=== PATIENT | male | born 1950 | race Caucasian/White ===

== ENCOUNTER 2017-10-18 21:03 | Emergency (ER) | payer BC ==
[2017-10-18] MEDS ORDERED: SODIUM CHLORIDE 0.9% 1,000 ML IV ONE (21:37)
[2017-10-18] MEDS ORDERED: ONDANSETRON 4 MG/2 ML VIAL IVP STA (21:37)
[2017-10-18 22:10] LABS: BASOPHILS # (AUTO) 0.1 10^3/uL (0.0-0.1); BASOPHILS % (AUTO) 0.5 %; EOSINOPHILS # (AUTO) 0.3 10^3/uL (0.0-0.7); EOSINOPHILS % (AUTO) 1.8 %; HGB - HEMOGLOBIN 14.8 g/dL (14.0-18.0); LYMPHOCYTES # (AUTO) 1.2 10^3/uL (1.5-3.5); LYMPHOCYTES % (AUTO) 8.4 %; MEAN CORPUSCULAR HEMOGLOBIN 29.3 pg (27.0-31.0); MEAN CORPUSCULAR HGB CONC 33.2 g/dL (32.0-36.0); MEAN CORPUSCULAR VOLUME 88.3 fL (80.0-94.0); MEAN PLATELET VOLUME 6.8 fL (7.4-11.4); MONOCYTES # (AUTO) 1.3 10^3/uL (0.0-1.0); NEUTROPHILS # (AUTO) 11.4 10^3/uL (1.5-6.6); NEUTROPHILS % (AUTO) 80.3 %; PLT - PLATELET COUNT 267 10^3/uL (130-450); RED BLOOD COUNT 5.05 10^6/uL (4.70-6.10); RED CELL DISTRIBUTION WIDTH 15.7 % (12.0-15.0); WHITE BLOOD COUNT 14.2 x10^3/uL (4.8-10.8)
[2017-10-18 22:21] LABS: ALBUMIN 4.2 g/dL (3.2-5.5); ALBUMIN/GLOBULIN RATIO 1.2 (1.0-2.2); BILIRUBIN,TOTAL 1.3 mg/dL (0.2-1.0); CALCIUM 9.1 mg/dL (8.5-10.3); CREATININE 1.1 mg/dL (0.6-1.2); TOTAL PROTEIN 7.6 g/dL (6.7-8.2)
--- NOTE | 2017-10-18 22:28 | ED Physician Documentation ---
PD HPI ABD PAIN - Stated complaint Stated Complaint: POSS ALLERGIC REACTION/STOMACH PX - Chief complaint Chief Complaint: Abd Pain - History obtained from History obtained from: Patient - History of Present Illness Timing - onset: How many days ago (4) Timing - details: Gradual onset, Still present Quality: Cramping, Aching Location: Epigastric, LUQ Worsened by: Eating Associated symptoms: Nausea, Diarrhea. No: Fever, Vomiting Similar symptoms before: Has not had sx before Recently seen: Not recently seen - Additional information Additional information: Patient is a 66 year old male with a history of diabetes, obesity and gerd who is presenting to the emergency department for abdominal pain. patient states that it has been going on for the last 4 days. Patient states that he thinks it started after taking a new medication for his diabetes. Patient does have a history of ibs mixed type and GERD. Review of Systems Constitutional: denies: Fever, Chills Eyes: denies: Decreased vision, Irritation Ears: denies: Ear pain, Drainage/discharge Nose: denies: Rhinorrhea / runny nose, Congestion Throat: denies: Dental pain / toothache, Sore throat Cardiac: denies: Chest pain / pressure, Palpitations GI: reports: Abdominal Pain, Nausea, Constipation, Diarrhea. denies: Vomiting : denies: Dysuria, Frequency Skin: denies: Rash, Lesions Musculoskeletal: denies: Back pain, Extremity pain Neurologic: denies: Generalized weakness, Focal weakness, Numbness Immunocompromised: denies: Immunocompromised PD PAST MEDICAL HISTORY - Past Medical History Past Medical History: Yes Cardiovascular: High cholesterol Respiratory: None Neuro: None Endocrine/Autoimmune: HyPOthyroidism, Other GI: GERD, Diverticulitis : None HEENT: None Psych: None Musculoskeletal: None Derm: None - Past Surgical History Past Surgical History: Yes General: Cholecystectomy, Other Ortho: Other - Present Medications Home Medications: Ambulatory Orders Medication Instructions Recorded Confirmed Ciprofloxacin HCl [Cipro] 500 mg PO BID #20 tablet 10/18/17 Metronidazole [Flagyl] 500 mg PO TID 10 Days tablet 10/18/17 Ondansetron Odt [Zofran] 4 mg TL Q6H PRN #20 tablet 10/18/17 - Allergies Allergies/Adverse Reactions: Allergies Allergy/AdvReac Type Severity Reaction Status Date / Time No Known Drug Allergies Allergy Verified 10/18/17 21:21 - Social History Does the pt smoke?: No Smoking Status: Never smoker Does the pt drink ETOH?: Yes Does the pt have substance abuse?: No - Immunizations Immunizations are current?: Yes - POLST Patient has POLST: No PD ED PE NORMAL - General General: Alert and oriented X 3, No acute distress - HEENT HEENT: Atraumatic - Neck Neck: Supple, no meningeal sign - Cardiac Cardiac: RRR, No murmur - Respiratory Respiratory: No respiratory distress - Derm Derm: Normal color, Warm and dry, No rash - Extremities Extremities: No deformity, No calf tenderness / cord - Neuro Neuro: Alert and oriented X 3 Eye Opening: Spontaneous Motor: Obeys Commands Verbal: Oriented GCS Score: 15 PD ED PE EXPANDED - HEENT HEENT: Dry mucous membranes - Abdomen Abdomen: Tender to palpation, Generalized/diffuse, Other (obese). No: Rebound, Guarding Results - Vitals Vitals: Vital Signs - 24 hr 10/18/17 10/18/17 10/18/17 21:18 21:24 22:00 Temperature 36.8 C Heart Rate 109 H 92 89 Respiratory 18 20 20 Rate Blood Pressure 143/98 H 148/95 H 137/86 H O2 Saturation 95 93 93 10/18/17 10/18/17 10/18/17 22:16 23:01 23:02 Temperature Heart Rate 90 87 89 Respiratory 20 19 19 Rate Blood Pressure 140/88 H O2 Saturation 93 94 93 10/18/17 23:17 Temperature Heart Rate 89 Respiratory 18 Rate Blood Pressure 140/88 H O2 Saturation 94 Oxygen O2 Source Room air - EKG (time done) 2156 Rate: Rate (enter#) (89) Rhythm: NSR [place]: Normal Intervals: Normal MO QRS: Normal Compare to prior EKG: Old EKG unavailable - Labs Labs: Laboratory Tests 10/18/17 10/18/17 10/18/17 22:00 22:00 22:00 WBC 14.2 H RBC 5.05 Hgb 14.8 Hct 44.5 MCV 88.3 MCH 29.3 MCHC 33.2 RDW 15.7 H Plt Count 267 MPV 6.8 L Neut # 11.4 H Lymph # 1.2 L Cochran # 1.3 H Eos # 0.3 Baso # 0.1 Absolute Nucleated RBC 0.01 Nucleated RBC % 0.0 Sodium 137 Potassium 3.9 Chloride 102 Carbon Dioxide 23 Anion Gap 12.0 BUN 18 Creatinine 1.1 Estimated GFR (MDRD) 67 L Glucose 136 H Calcium 9.1 Total Bilirubin 1.3 H AST 21 ALT 23 Alkaline Phosphatase 59 Troponin I < 0.04 Total Protein 7.6 Albumin 4.2 Globulin 3.4 Albumin/Globulin Ratio 1.2 Lipase 18 L - Rads (name of study) ct abd and pelvis Radiology: Final report received, See rad report (diverticulitis) PD MEDICAL DECISION MAKING - ED course Complexity details: reviewed old records, reviewed results, re-evaluated patient , considered differential, d/w patient ED course: Patient was seen and examined at bedside. IV access was gained and labs were drawn. Patient was treated with zofran and a fluid bolus. Imaging was ordered. When patient returned from imaging the results were reviewed. Patient was found to have simple diverticulitis. Patient was able to tolerate PO and was appropriate for a trial of outpatient antibiotics. Patient was treated with cipro and flagly and was stable for discharge home. Departure - Departure Disposition: 01 Home, Self Care Clinical Impression: Diverticulitis of gastrointestinal tract Condition: Good Instructions: ED Diverticulitis Follow-Up: primary,care provider [Other] - Within 3 Days Prescriptions: Ciprofloxacin HCl [Cipro] 500 mg PO BID #20 tablet Metronidazole [Flagyl] 500 mg PO TID 10 Days tablet Ondansetron Odt [Zofran] 4 mg TL Q6H PRN #20 tablet PRN Reason: Nausea / Vomiting Comments: Your symptoms today are being caused by diverticulitis. You have been started on antibiotics tonight and you will be on them for the next 10 days. You should start on a clear diet and slowly advance it. You should call your doctor on saturday and let them know your diagnosis and schedule a follow up appointment. You may return to the emergency department at any time for new worsening or uncontrollable symptoms.
[2017-10-18] MEDS ORDERED: IOPAMIDOL-300 100 ML VIAL ONE (22:34)
[2017-10-18] MEDS ORDERED: IOPAMIDOL-300 100 ML VIAL IVP ONE (22:46)
--- NOTE | 2017-10-18 23:26 | CT Report ---
EXAM: CT ABDOMEN AND PELVIS EXAM DATE: 10/18/2017 10:56 PM. CLINICAL HISTORY: Abdominal pain with nausea and distention. COMPARISONS: None. TECHNIQUE: Routine helical CT imaging was performed through the abdomen and pelvis. IV contrast: 100M L ISOVUE 300. Enteric contrast: No. Reconstructions: Coronal and sagittal. In accordance with CT protocol optimization, one or more of the following dose reduction techniques w ere utilized for this exam: automated exposure control, adjustment of mA and/or KV based on patient s ize, or use of iterative reconstructive technique. FINDINGS: Lung Bases: Minimal bibasilar atelectasis. Liver: Fatty infiltration. Gallbladder/Bile Ducts: Status post cholecystectomy. Spleen: Normal. Pancreas: Normal. Adrenal Glands: Normal. Kidneys: Bilateral cysts. No masses or hydronephrosis. Peritoneal Cavity/Bowel: Sigmoid diverticulitis. No [place] abscess seen. Gastric sleeve procedure is n oted. No bowel obstruction. No free air or free fluid. Normal-sized retroperitoneal lymph nodes. Tiny umbilical hernia and supraumbilical ventral hernia, both containing fat. Appendix appears normal. Pelvic Organs: Normal. The bladder and visualized pelvic organs are within normal limits. Vasculature: Mild atherosclerosis. No aortic aneurysm. Bones: No significant abnormality. Other: None. IMPRESSION: 1. Sigmoid diverticulitis. No abscess seen. 2. No bowel obstruction. 3. Fatty liver. 4. Gastric sleeve. [facility] Referring Provider Line: [phone] SITE ID: [id number]
--- NOTE | 2017-10-18 23:26 | CT Preliminary Report ---
Exam: CT ABDOMEN/PELVIS W/ IMPRESSION: 1. Sigmoid diverticulitis. No abscess seen. 2. No bowel obstruction. 3. Fatty liver. 4. Gastric sleeve. [facility] SITE ID: [id number]
[2017-10-18] MEDS ORDERED: CIPROFLOXACIN 250 MG TABLET PO STA (23:35)
[2017-10-18] MEDS ORDERED: metroNIDAZOLE 250 MG TABLET PO STA (23:35)
[2017-10-18 23:45] VITALS: BP 147/76
== END 2017-10-18 23:44 | disposition home or self-care (01) ==
LOC: ED 21:03
DX: K57.92 Diverticulitis of intestine, part unspecified, without perforation or abscess without bleeding (principal); E66.9 Obesity, unspecified; E11.9 Type 2 diabetes mellitus without complications; E03.9 Hypothyroidism, unspecified; E78.00 Pure hypercholesterolemia, unspecified
CPT/HCPCS: 36415; 74177; 80053; 83690; 84484; 85025; 93005; 96361; 96374; 99284; A9270; Q9967

== ENCOUNTER 2017-10-28 08:09 | Emergency (ER) | payer BC ==
[2017-10-28] MEDS ORDERED: oxyCOD/ACETAMIN 5 MG/325 MG TABLET PO STA ×2 (08:43→08:49)
--- NOTE | 2017-10-28 08:47 | ED Physician Documentation ---
History of Present Illness - Stated complaint Stated Complaint: LEFT KNEE PX - Chief complaint Chief Complaint: Ext Problem - Additonal information Additional information: hx from pt 66 male to ER with l knee pain X several days no specific injury pain is worse with moving mostly anterior no calf pain or swelling no fever on cipro and flagyl X 9 days for divertic - advises to dc cipro as he is feeling better and could be causing tendon lig issues Review of Systems Constitutional: denies: Fever GI: denies: Abdominal Pain Musculoskeletal: reports: Joint pain, Joint swelling, Pain with weight bearing Endocrine: denies: Easy bruising / bleeding Immunocompromised: denies: Immunocompromised PD PAST MEDICAL HISTORY - Past Medical History Cardiovascular: High cholesterol Respiratory: None Neuro: None Endocrine/Autoimmune: HyPOthyroidism, Other GI: GERD, Diverticulitis : None HEENT: None Psych: None Musculoskeletal: None Derm: None - Past Surgical History Past Surgical History: Yes General: Cholecystectomy, Other Ortho: Other - Present Medications Home Medications: Ambulatory Orders Medication Instructions Recorded Confirmed Ciprofloxacin HCl [Cipro] 500 mg PO BID #20 tablet 10/18/17 Metronidazole [Flagyl] 500 mg PO TID 10 Days tablet 10/18/17 Ondansetron Odt [Zofran] 4 mg TL Q6H PRN #20 tablet 10/18/17 Esomeprazole Magnesium [Nexium] 10/28/17 Indomethacin [Indocin] 25 mg PO TIDWM PRN #21 capsule 10/28/17 Levothyroxine Sodium 10/28/17 Testosterone 10/28/17 hydroCHLOROthiazide 10/28/17 [Hydrochlorothiazide] - Allergies Allergies/Adverse Reactions: Allergies Allergy/AdvReac Type Severity Reaction Status Date / Time No Known Drug Allergies Allergy Verified 10/18/17 21:21 - Social History Does the pt smoke?: No Smoking Status: Never smoker Does the pt drink ETOH?: Yes Does the pt have substance abuse?: No - Immunizations Immunizations are current?: Yes - POLST Patient has POLST: No PD ED PE NORMAL - Vitals Vital signs reviewed: Yes - Cardiac Cardiac: RRR - Respiratory Respiratory: No respiratory distress, Clear bilaterally - Abdomen Abdomen: Non tender - Extremities Extremities: Other (L knee + effusion not red or warm, no ACL LCL MCL laxity, diff to assess menisci 2/2 pain, pain with ROM, TTP primarily anterior, no popliteal pain swelling cord, calf not swollen and NT, MSV intact) Results - Vitals Vitals: Vital Signs - 24 hr 10/28/17 10/28/17 08:17 12:22 Temperature 36.0 C L 36.8 C Heart Rate 107 H 72 Respiratory 17 17 Rate Blood Pressure 125/87 H 114/68 O2 Saturation 95 94 Oxygen O2 Source Room air - Rads (name of study) knee Radiology: See rad report (degen changes, no fx) Departure - Departure Disposition: 01 Home, Self Care Clinical Impression: Knee effusion, left, Arthritis Condition: Good Instructions: ED Effusion Knee, ED Degenerative Joint Disease Follow-Up: [facility] [Provider Group] Prescriptions: Indomethacin [Indocin] 25 mg PO TIDWM PRN #21 capsule PRN Reason: knee pain and swelling Comments: The xray shows arthritis / degenerative changes to you knee but no fractures Recommend an anti-inflammatory pain medication such as indocin for the pain and applying ice for 20 min three times a day. An LORELEI wrap will help decrease the swelling Try to rest your knee Follow up with your PMD or orthopedics if not better Return to the ER if worse Stop the cipro since it might be causing some of the joint pain and since your abdominal infection is better
[2017-10-28 12:25] VITALS: BP 114/68
--- NOTE | 2017-10-28 12:36 | XRAY Report ---
EXAM: LEFT KNEE RADIOGRAPHY EXAM DATE: 10/28/2017 12:04 PM. CLINICAL HISTORY: Knee pain and swelling. COMPARISON: None. TECHNIQUE: 4 views. FINDINGS: Bones: Bony mineralization appears appropriate. No acute fracture or focal osseous destruction. Joints: No dislocation. No large suprapatellar joint effusion. Superior and inferior patellar entheso phytes. Mild to moderate tricompartmental degenerative change appears most prominent at the lateral f emorotibial joint space. No large suprapatellar joint effusion. Soft Tissues: No radiopaque foreign body. Mild soft tissue swelling. IMPRESSION: 1. No acute fracture or dislocation identified. 2. Mild to moderate degenerative changes, most prominent in the lateral femorotibial joint space. Sup erior and inferior patellar enthesophytes also noted. 3. Soft tissue swelling. [facility] Referring Provider Line: [phone] SITE ID: [id number]
--- NOTE | 2017-10-28 12:36 | XRAY Preliminary Report ---
Exam: XR KNEE 4 VIEW LT IMPRESSION: 1. No acute fracture or dislocation identified. 2. Mild to moderate degenerative changes, most prominent in the lateral femorotibial joint space. Sup erior and inferior patellar enthesophytes also noted. 3. Soft tissue swelling. [facility] SITE ID: [id number]
[2017-10-28] MEDS ORDERED: INDOMETHACIN 25 MG CAPSULE PO STA (13:04)
== END 2017-10-28 13:40 | disposition home or self-care (01) ==
LOC: ED 08:09
DX: M25.462 Effusion, left knee (principal); M13.862 Other specified arthritis, left knee; E78.00 Pure hypercholesterolemia, unspecified; E03.9 Hypothyroidism, unspecified
CPT/HCPCS: 73564; 99283; A9270